=== PATIENT | male | born 1970 | race African-American/Black ===

== ENCOUNTER 2017-02-19 09:13 | Emergency (ER) | payer SELFPAY ==
[~2017-02-19] VITALS: Ht 177.8 cm; Wt 85.0 kg
[~2017-02-19 09:13] MED LIST: DICL75 PO; HYDR-3533 PO
[2017-02-19 09:14] VITALS: BP 126/83; PULSE 102; RESP 20; TEMP 98.7; O2SAT 97
--- NOTE | 2017-02-19 09:30 | PD ---
HPI Chief Complaint: Injury Time Seen by Provider: 09:23 Travel History International Travel<30 days: No Contact w/Intl Traveler<30days: No Traveled to known affect area: No History of Present Illness HPI 46-year-old male presents the emergency department with injury to the right hand. Patient states he hit a wall 2 days ago. He has obvious deformity and decreased mobility in the fourth digit of the right hand and question change in the fifth digit as well. There is no open wound or abrasion. He denies numbness. Pain is 6 out of 10. He has no known drug allergies. PFSH Past Medical History Blood Disorders: No Cardiovascular Problems: No Endocrine: No Genitourinary: No Immune Disorder: No Musculoskeletal: No Neurologic: No Psychiatric: No Reproductive: No Respiratory: No Past Surgical History Abdominal Surgery: No Genitourinary Surgery: No Gynecologic Surgery: No Social History Alcohol Use: Yes (2 TIMES PER WEEK PER PT) Tobacco Use: Yes (1PPD) Substance Use: No Allergies-Medications (Allergen,Severity, Reaction): Coded Allergies: No Known Allergies (Verified , 02/19/17) Reported Meds & Prescriptions Reported Meds & Active Scripts Active Tramadol (Tramadol HCl) 50 Mg Tab 50 Mg PO Q6H PRN Non-Aspirin Pain Relief ES (Acetaminophen) 500 Mg Tab 500 Mg PO Q6HR PRN Review of Systems Except as stated in HPI: all other systems reviewed are Neg General / Constitutional: No: Fever Eyes: No: Visual changes HENT: No: Headaches Cardiovascular: No: Chest Pain or Discomfort Respiratory: No: Shortness of Breath Gastrointestinal: No: Abdominal Pain Genitourinary: No: Dysuria Musculoskeletal: Positive: Arthralgias, Limited ROM, Pain (see history present illness.) Skin: No Rash Neurologic: No: Weakness Psychiatric: No: Depression Endocrine: No: Polydipsia Hematologic/Lymphatic: No: Easy Bruising Physical Exam Narrative GENERAL: Patient appears in mild to moderate distress. SKIN: Warm and dry. Normal color. Normal turgor. No open wounds or abrasions. HEAD: Atraumatic. Normocephalic. EYES: Pupils equal and round. No scleral icterus. No injection or drainage. ENT: No nasal bleeding or discharge. Mucous membranes pink and moist. Pharynx is clear. NECK: Trachea midline. Supple nontender CARDIOVASCULAR: Regular rate and rhythm. RESPIRATORY: No accessory muscle use. Clear to auscultation. Breath sounds equal bilaterally. MUSCULOSKELETAL: Extremities without clubbing, cyanosis, or edema. Patient has obvious deformity to the right fourth metacarpal with shortening of the metacarpal and phalanx. Patient appears to have rotation of the right fourth phalanx laterally. Ability to make a fist is limited secondary to previous injury. Patient has no injury to the first second and third fingers. Right Wrist is intact and normal. NEUROLOGICAL: Awake and alert. No obvious cranial nerve deficits. Motor grossly within normal limits. Five out of 5 muscle strength in the arms and legs. Normal speech. PSYCHIATRIC: Appropriate mood and affect; insight and judgment normal. Data Data Last Documented VS Vital Signs Date Time Temp Pulse Resp B/P Pulse Ox O2 Delivery O2 Flow Rate FiO2 02/19/17 09:42 Room Air 02/19/17 09:14 98.7 102 20 126/83 97 Orders Hand, Complete ([id number]) (02/19/17 09:22) Ice/Cold Pack (02/19/17 09:22) Splinting (02/19/17 ) Mandatory Outpatient Referral (02/19/17 10:35) [facility] Medical Decision Making Medical Screen Exam Complete: Yes Emergency Medical Condition: Yes Differential Diagnosis Contusion right hand. Fracture fourth metacarpal. Fracture fifth metacarpal. Narrative Course Patient is medically stable at time of exam. X-rays of the right hand are ordered. Ice pack is applied to the injured area. X-ray shows Acute, impacted, angulated fracture of the fourth metacarpal head. Per radiologist. Call was placed to Dr. Donaldson, the hand surgeon yard conductor patient was discussed. Patient is placed in a ulnar gutter splint by [employer]. Patient is to take Tylenol for pain and ice it. Patient is given tramadol 50 mg one every 6 hours when necessary pain #20. Splint is to remain in place until seen by Dr. Donaldson for follow-up. Work note is given. Diagnosis Primary Impression: Displaced fracture of neck of right fourth metacarpal bone Qualified Code: S62.334A - Closed displaced fracture of neck of fourth metacarpal bone of right hand, initial encounter Referrals: Nemesio Donaldson III, MD call for appointment Patient Instructions: General Instructions, Hand Fracture (ED), Splint Care (ED ) Departure Forms: Work Release Enter return to work date: Feb 19, 2017 Special Instructions: Limited use of Right hand until cleared by Hand Surgeon. Additional Instructions: X-ray shows Acute, impacted, angulated fracture of the fourth metacarpal head. Per radiologist. Call was placed to Dr. Donaldson, the hand surgeon yard conductor patient was discussed. Patient is placed in a ulnar gutter splint by [employer]. Patient is to take Tylenol for pain and ice it. Patient is given tramadol 50 mg one every 6 hours when necessary pain #20. Splint is to remain in place until seen by Dr. Donaldson for follow-up. Work note is given. Med/Other Pt SpecificInfo: Prescription(s) given Scripts Tramadol 50 Mg Tab50 Mg PO Q6H PRN (PAIN) #20 TAB Prov:Robert Duffy MD 02/19/17 Acetaminophen (Non-Aspirin Pain Relief ES)500 Mg Auu374 Mg PO Q6HR PRN (PAIN) # 60 TAB Prov:Robert Duffy MD 02/19/17 Disposition: 01 DISCHARGE HOME Condition: Stable Mike Beasley Feb 19, 2017 09:30
--- NOTE | 2017-02-19 09:53 | RADRPT ---
EXAM DATE/TIME: 02/19/2017 09:40 [facility] COMPARISON: SHOULDER RIGHT LTD (2VWS), October 17, 2015, 11:57. INDICATIONS : Punched pole two days ago. MEDICAL HISTORY : None. SURGICAL HISTORY : None. ENCOUNTER: Initial ACUITY: 2 days PAIN SCORE: 10/10 LOCATION: Right 4th and 5th proximal interphalangeal joint, RT hand. FINDINGS: The examination demonstrates angulation of the fourth and fifth metacarpal heads. I believe there is old, healed fracture of the fifth metacarpal head. There is an acute, impacted fracture with angulation of the fourth metacarpal head. CONCLUSION: 1. Acute, impacted, angulated fracture of the fourth metacarpal head. 2. There is angulation of the fifth metacarpal head. I believe this represents an old, healed fractur eElias Rivas MD on February 19, 2017 at 9:47 Board Certified Radiologist. This report was verified electronically.
[2017-02-19] MEDS ORDERED: NON-500T13 PO (10:37)
[2017-02-19] MEDS ORDERED: TRAM50TA PO (10:51)
[2017-02-19] MEDS ORDERED: ACETAMINOPHEN/HYDROcodone 325 MG/5 MG TAB PO ONE (11:00)
[2017-02-19] MEDS ORDERED: predniSONE 20 MG TAB PO ONE (11:00)
== END 2017-02-19 11:22 | disposition home or self-care (01) ==
LOC: NEPK 09:13
DX: S62.334A Displaced fracture of neck of fourth metacarpal bone, right hand, initial encounter for closed fracture (principal); W22.01XA Walked into wall, initial encounter
CPT/HCPCS: 29125; 73130